=== PATIENT | male | born 1955 | race Caucasian/White ===

== ENCOUNTER 2023-08-15 11:52 | Emergency (ER) | payer OTHER, MEDICAID, MEDICARE ==
[~2023-08-15] VITALS: Ht 167.6 cm; Wt 77.0 kg
[2023-08-15] MEDS ORDERED: CLINDAMYCIN PHOSPHATE/D5W 600 MG/50 ML BAG IV ONE (12:15)
[2023-08-15] MEDS ORDERED: GLIPIZIDE XL2.5 MG PO (12:19)
[2023-08-15] MEDS ORDERED: METFORMIN HCL1000 M1 PO (12:19)
[2023-08-15] MEDS ORDERED: CLARITIN10 M2 PO (12:20)
[2023-08-15] MEDS ORDERED: ATENOLOL25 MG PO (12:20)
[2023-08-15] MEDS ORDERED: LYRICA25 MG PO (12:20)
[2023-08-15] MEDS ORDERED: OMEPRAZOLE20 MG PO (12:20)
[2023-08-15 12:37] LABS: BASOPHILS 0.4 % (0-2); EOSINOPHILS 1.9 % (0-6); HEMATOCRIT 35.7 % (35.0-50.0); HEMOGLOBIN 11.8 g/dL (12.0-18.0); LYMPHOCYTES 21.8 % (24-44); MCH 26.1 (27-36); MONOCYTES 7.8 % (0-12); NEUTROPHILS 68.1 % (39-80); PLATELET COUNT 145 K/uL (140-440); RBC 4.52 M/ul (4.3-5.7); RDW 15.5 (10.5-15.0)
[2023-08-15 12:54] LABS: ALBUMIN 2.9 g/dL (3.4-5.0); ALBUMIN/GLOBULIN RATIO 0.69 (1.1-2.4); ANION GAP 14.2 (7-21); BILIRUBIN, TOTAL 0.2 ng/dL (0.2-1.0); BUN/CREATININE RATIO 15.74 (6.0-28.6); CALCIUM 7.8 mg/dL (8.5-10.1); CREATININE, SERUM 1.08 mg/dL (0.70-1.30); POTASSIUM 4.2 mmol/L (3.5-5.1); PROTEIN, TOTAL 7.1 g/dL (6.4-8.2)
[2023-08-15] MEDS ORDERED: CLEOCIN HCL300 MG PO (13:04)
[2023-08-15 13:10] VITALS: BP 97/65
== END 2023-08-15 13:10 | disposition home or self-care (01) ==
LOC: ED 11:52
PROVIDERS: Internal Medicine
DX: L03.115 Cellulitis of right lower limb (principal); R73.9 Hyperglycemia, unspecified; Z79.899 Other long term (current) drug therapy; Z79.84 Long term (current) use of oral hypoglycemic drugs
CPT/HCPCS: 36415; 80053; 85025; 96365; 99283-25